=== PATIENT | female | born 2000 | race Caucasian/White ===

== ENCOUNTER → 2024-08-22 13:39 | Outpatient (CLI) | payer OTHER, BC, SELFPAY ==
--- NOTE | 2024-08-22 13:45 | DI.US.S_ITS ---
PROCEDURE: US OB >= 14 WEEKS FETUS INDICATIONS: 20 Weeks OUTSIDE/PRIOR DATING DATA: Last menstrual period (LMP): 03/26/2024. LMP-based estimated date of delivery (LEANN): 12/31/2024. First dating scan (date and location): 08/22/2024. Estimated date of delivery (LEANN) from first dating scan: 12/26/2024. The calculations are made using the clinical LEANN of 12/31/2024. TECHNIQUE: Real-time scanning was performed of the fetus, with image documentation and biometric measurements. Endovaginal scanning: Not performed COMPARISON: None. FINDINGS: General: A single living intrauterine gestation is present. Presentation: Vertex. Placenta: Placental position is anterior, without previa. Venous lakes x2. Largest measuring 5.9 cm. Amniotic fluid index: 19.2 cm, normal range is 5-24 cm. Single deepest vertical pocket is 5.7 cm. heart rate: 147 beats per minute. Maternal cervical canal: 3.3 cm long. Normal lower limit is 2.5 cm. biometrics: Biparietal diameter: 5.4 cm, 22 weeks 3 days Head circumference: 18.9 cm, 21 weeks 2 days Abdominal circumference: 17.0 cm, 22 weeks 0 days Femur length: 3.8 cm, 22 weeks 0 days Clinically estimated gestational age: 21 weeks 2 days Composite gestational age from present scan: 22 weeks 0 days Estimated weight and percentile: 461 g, 78th percentile Anatomic survey: Neuro: Ventricles are non-dilated at less than 10 mm. Cisterna magna is normal at 3-11 mm. Cerebellum is normal in size and morphology. Nuchal skin fold: Normal at less than 6 mm between 14-21 weeks gestational age. Face: Nose and lips, facial profile are normal. Spine: No evidence for spina bifida. Heart: 4-chambered heart is present, with normal ventricular outflow tracts. Diaphragm: Diaphragm is intact. Stomach: Left-sided stomach is present. Kidneys: No hydronephrosis. Normal is less than 5 mm in 2nd trimester, less than 7 mm in 3rd trimester. Cord: 3-vessel cord has orthotopic insertion. Bladder: Normal in size. Extremities: All 4 extremities identified. IMPRESSION: 1. [place]oy living intrauterine at 22 weeks 0 days based on today's ultrasound. This is concordant with the prior ultrasound. There is expected interval growth. Fetus is in the 78th percentile for weight. 2. Normal amniotic fluid. Incidental placental venous lakes. Otherwise normal appearing placenta. 3. Normal and complete anatomic survey. We strive to produce accurate, complete, and clear reports of imaging services. To assist us in improving patient care, this report was composed using standard report templates and voice recognition software. Therefore, it may contain abnormal punctuation, insertions and/or omissions. Occasional wrong-word or sound-alike substitutions may occur. Though we review the report and make efforts to correct it, we do recommend that the report be read carefully in proper context to recognize any text inaccuracies. Dictated by: Jordan Peng M.D. on 08/22/2024 at 17:47 Approved by: Jordan Peng M.D. on 08/22/2024 at 17:56
== END ==
PROVIDERS: PCP Family Medicine; Referring Provider Midwife; Visit Provider Midwife
DX: Z34.82 Encounter for supervision of other normal pregnancy, second trimester (principal); Z3A.22 22 weeks gestation of pregnancy
CPT/HCPCS: 76811

== ENCOUNTER 2024-09-20 16:55 | Observation (INO) | payer OTHER, BC, SELFPAY ==
[2024-09-20] MEDS: ACETAMINOPHEN 325 MG TABLET 650 MG PO (18:55)
[2024-09-20 19:06] LABS: Influenza A - CEPHEID Flu A NEGATIVE (NEGATIVE); Influenza B - CEPHEID Flu B NEGATIVE (NEGATIVE); Respiratory Syncytial Virus Negative (Negative)
[2024-09-20 19:26] LABS: COVID-19 CEPHEID 4-PLEX PCR Negative (Negative)
== END 2024-09-20 19:15 | disposition home or self-care (01) ==
LOC: LABOR 16:57
PROVIDERS: Admitting Provider Obstetrics & Gynecology; PCP Family Medicine; Referring Provider Obstetrics & Gynecology; Visit Provider Obstetrics & Gynecology
DX: O36.8120 Decreased fetal movements, second trimester, not applicable or unspecified (principal); Z3A.25 25 weeks gestation of pregnancy
CPT/HCPCS: 0241U; 84112; G0378; G0379